=== PATIENT | female | born 1990 | race Caucasian/White ===

== ENCOUNTER 2024-01-03 17:07 | Emergency (ER) | payer SELFPAY ==
[~2024-01-03] VITALS: Ht 167.6 cm; Wt 60.0 kg
[2024-01-03 17:10] VITALS: O2SAT 99
[2024-01-03] MEDS ORDERED: MAGNESIUM/ALUMINUM HYDROXIDE/SIMETHICONE 30ML UDC PO STA (18:23)
[2024-01-03] MEDS ORDERED: DICYCLOMINE 10 MG/5 ML ORAL SYR PO STA (18:23)
[2024-01-03] MEDS: HALOPERIDOL LACTATE 5MG/ML VIAL IM NR (18:30)
[2024-01-03] MEDS ORDERED: HALOPERIDOL LACTATE 5MG/ML VIAL IM ONE (18:30)
[2024-01-03 19:27] LABS: CLARITY URINE CLEAR (CLEAR); COLOR URINE YELLOW (YELLOW); GLUCOSE URINE NEGATIVE (NEGATIVE); KETONES URINE 1+ (NEGATIVE); LEUKOCYTE ESTERASE URINE NEGATIVE (NEGATIVE); NITRITE URINE NEGATIVE (NEGATIVE); OCCULT BLOOD URINE NEGATIVE (NEGATIVE); PH URINE 6.5 (4.5-8.0); PROTEIN URINE NEGATIVE (NEGATIVE); SPECIFIC GRAVITY URINE 1.004 (1.005-1.030); UROBILINOGEN URINE 0.2 E.U./dL (0.2-1.0)
[2024-01-03 19:30] LABS: BASOPHILS % 0.8 % (0.0-2.0); EOSINOPHILS % 0.2 % (0.0-5.0); HEMATOCRIT. 43.2 % (36.0-48.0); LYMPHOCYTES % 12.3 % (20.0-50.0); MEAN CORPUSCULAR HEMOGLOBIN 31.5 pg (28.0-32.0); MEAN CORPUSCULAR HGB CONC 34.9 g/dL (31.0-37.0); MEAN CORPUSCULAR VOLUME 90.4 fL (81.0-99.0); MONOCYTES % 3.9 % (2.0-8.0); NEUTROPHILS % 82.8 % (40.0-76.0); PLATELET 212 x1000/uL (130-400); RED BLOOD CELL COUNT 4.78 mill/uL (4.2-5.4); RED CELL DISTRIBUTION WIDTH 12.8 % (11.6-14.6); WHITE BLOOD COUNT 7.8 x1000/uL (4.5-11.0)
[2024-01-03 19:35] LABS: CHLORIDE 107 mEq/L (98-107); SODIUM 138 mEq/L (136-145)
[2024-01-03 19:36] LABS: CARBON DIOXIDE 23 mEq/L (21-32)
[2024-01-03 19:41] LABS: CREATININE 0.7 mg/dL (0.6-1.0); GLUCOSE 97 mg/dL (70-105); UREA NITROGEN BLOOD 6 mg/dL (9-23)
[2024-01-03 19:43] LABS: ALANINE AMINOTRANSFERASE 10 IU/L (10-49); ALBUMIN 4.7 g/dL (3.2-4.8); ASPARTATE AMINOTRANSFERASE 18 IU/L (<34); BILIRUBIN DIRECT 0.5 mg/dL (<=3.0); BILIRUBIN TOTAL 1.6 mg/dL (0.1-1.0); ETHANOL BLOOD < 10 mg/dL (<10); HCG SCREEN NEGATIVE; PROTEIN TOTAL 7.6 g/dL (6.0-8.3)
[2024-01-03] MEDS: MAGNESIUM/ALUMINUM HYDROXIDE/SIMETHICONE 30ML UDC PO NR (20:16)
[2024-01-03] MEDS: DICYCLOMINE HCL 10MG CAPSULE PO NR (20:16)
[2024-01-03] MEDS: ONDANSETRON 4MG ODT PO ONE (20:16)
[2024-01-03 20:27] VITALS: BP 120/70; PULSE 93; RESP 12; TEMP 98.6
[2024-01-03] MEDS ORDERED: METO-293 MT (20:33)
== END 2024-01-03 20:35 | disposition home or self-care (01) ==
LOC: ER 17:07
DX: R11.2 Nausea with vomiting, unspecified (principal)
CPT/HCPCS: 80076; 80048; 81003; 81025; 80320; 84703; 83690; 85025; 36415; 99284; Q0162; J1630; G0480